=== PATIENT | male | born 2000 ===

== ENCOUNTER 2024-08-29 10:26 | Emergency (ER) | payer BC, SELFPAY ==
--- NOTE | ~2024-08-29 | XR_ITS ---
CLINICAL HISTORY: trauma, swelling 3 view left foot Comparison: None provided Findings: Nondisplaced fracture at the base of the left 5th metatarsal. Mild surrounding edema. No significant arthritic change or erosions. No ankle effusion. No radiopaque foreign body. IMPRESSION: Nondisplaced fracture at the base of the left 5th metatarsal. Mild surrounding edema. This document has been electronically signed by: Vishnu Castro MD on 08/29/2024 11:06:23
--- NOTE | ~2024-08-29 | XR_ITS ---
CLINICAL HISTORY: trauma swelling 3 view left ankle Comparison: None provided Findings: Nondisplaced fracture of the base of the left 5th metatarsal. Mild surrounding soft tissue edema. No significant loss of joint space, osteophytes, or erosions. No ankle effusion. No radiopaque foreign body. IMPRESSION: Nondisplaced fracture of the base of the left 5th metatarsal. Mild surrounding soft tissue edema. This document has been electronically signed by: Vishnu Castro MD on 08/29/2024 11:05:51
[2024-08-29 10:31] VITALS: BP 109/60; PULSE 65; RESP 18; TEMP 37; O2SAT 98; BMI 26.5
--- NOTE | 2024-08-29 11:06 | ED_ITS ---
HPI - General Adult General Chief complaint: Extremity Injury, Lower Stated complaint: L foot injury Time Seen by Provider: 08/29/24 11:03 Source: patient and family (patient's mother) Mode of arrival: wheelchair Limitations: no limitations History of Present Illness ED Provider: Lesly Aldridge PA-C HPI narrative: Patient is a 23 year old assigned male at with no reported medical history presenting to the emergency department today with left foot pain. Patient states that he was cleaning his deck when he fell awkwardly down his stairs and immediately had pain in his left foot with swelling. Patient denies any head strike, loss of consciousness, dizziness, lightheadedness, abdominal pain, nausea, vomiting, fever, chills, blurry vision, double vision, loss of vision, chest pain, difficulty breathing, shortness of breath, back pain, night sweats, pain with urination, increased urinary frequency, increased urinary urgency, blood in his urine or stool, syncope or a near syncopal episode, bowel incontinence, bladder incontinence, or any other complaints at this time. Relieving factors: immobilization Exacerbating factors: movement Associated symptoms: denies other symptoms Treatments prior to arrival: none Related Data Allergies Allergy/AdvReac Type Severity Reaction Status Date / Time No Known Allergies (No Known Allergy Unverified 08/29/24 10:33 Allergies*) Review of Systems Constitutional: Constitutional: Reports no additional constitutional complaints, Denies chills, Denies fever(s) and Denies night sweats Eyes: Eyes: Reports no additional eye complaints, Denies blurry vision, Denies change in vision, Denies diplopia, Denies eye discharge, Denies loss of vision and Denies eye pain ENT: Denies dizziness Cardiovascular: Cardiovascular: Reports no additional cardiovascular complaints, Denies chest pain, Denies lightheadedness, Denies Loss of Consciousness and Denies dyspnea Respiratory: Respiratory: Reports no additional respiratory complaints and Denies dyspnea Gastrointestinal: Gastrointestinal: Reports no additional gastrointestinal complaints, Denies abdominal pain, Denies melena, Denies hematochezia, Denies change in bowel habits and Denies change in stool character Genitourinary: Genitourinary: Reports no additional male genitourinary complaints, Denies hematuria, Denies oliguria, Denies difficulty urinating, Denies dysuria, Denies urinary frequency, Denies urinary hesitancy, Denies urinary incontinence and Denies urinary urgency Musculoskeletal: Musculoskeletal: Reports no additional musculoskeletal complaints, Denies numbness and Denies tingling Comments: left foot pain Neurologic: Denies dizziness, Denies loss of vision, Denies numbness and Denies tingling Psychiatric: Psychiatric: Reports no additional psychiatric complaints Endocrine: Endocrine: Reports no additional endocrine complaints Hematologic/Lymphatic: Hematologic/Lymphatic: Reports no additional doyle tologic/lymphatic complaints Allergic/Immunologic: Allergic/Immunologic: Reports no additional allergic/immunologic complaints PMFSH Past Medical History Attestation statement: The following information was validated with the patient. (all information validated with the patient's mother) Source: old records reviewed, obtained from family (patient's mother provided additional history and confirmed the history provided by the patient.) and nu rsing notes reviewed Social History Social History Advance Directives: No Advance Directives Information Provided: No Physical Exam ED Vital Signs: Vital Signs - 24 hr 08/29/24 10:31 08/29/24 11:55 08/29/24 12:03 Temperature 98.6 F 97.7 F 97.7 F Pulse Rate 65 59 59 Respiratory Rate 18 16 16 Blood Pressure 109/60 125/68 125/68 Pulse Oximetry 98 97 97 Oxygen Delivery Method Room Air Room Air Room Air BMI result Body Mass Index 26.5 Const General: cooperative, no acute distress, alert and awake Nutritional Appearance: well nourished Orientation/consciousness: patient oriented x3 HENMT Head: Yes normal to inspection and Yes atraumatic Ears: hearing grossly normal bilaterally and external ears normal General nose exam: Normal external nose present, no nasal discharge noted and no epistaxis Face and sinus: Yes normal facial exam, No abrasion and No laceration Mouth: Normal oral and palatal mucosa present, no drooling and no muffled voice Eyes General: appearance normal, both eyes and all related structures Periorbital: periorbital findings normal Eyelids: Yes eyelids normal Conjunctivae: conjunctivae normal Pupils: Equal, round and reactive pupils present EOM: EOMs intact bilaterally Neck Neck: Yes normal visual inspection, Yes full ROM and Yes no lymphadenopathy Resp Effort & Inspection: normal respiratory effort and able to speak in complete sentences Neuro General: patient oriented x3, moves all extremities and CN's II-XI intact bilaterally Cranial nerves: Yes Equal, round and reactive pupils present Cognition (Neuro): normal cognition Extrem Other: swelling present to the left anterior foot - over the 5th met pain with inversion of the left foot General: Yes capillary refill normal Psych Appearance: grossly normal Mental Status: mental status grossly normal Affect: normal affect Attitude: cooperative Thought process: Normal thought process present Thought content: Normal thought content present Insight: Good insight present (Psych) Procedures Orthopedic Splinting/Casting Injury #1: Side: left Lower Extremity Injury Location: foot Lower Extremity Immobilizer: posterior splint Other Orthopedic Equipment: crutches Medical Decision Making Medical Decision Making MDM Narrative: Patient is a 23 year old assigned male at with no reported medical history presenting to the emergency department today with left foot pain. Patient's physical exam was as noted in the physical exam portion of this note. Patient's left foot and ankle x-rays showed evidence of a 5th metatarsal fracture at the base with surrounding edema. Upon personal review of the imaging, I am concerned for a Alas type fracture. I spoke with the orthopedic team who recommended placing the patient in a posterior short leg splint, remaining non weight bearing, and having him follow up on an outpatient basis in the office. I explained my physical exam findings as well as all test results to the patient and the patient's mother. I answered all questions asked by the patient and the patient's mother. I placed a posterior short leg splint on the left lower extremity, without incident. Patient's PMS of the left lower extremity was present and intact prior to and after splint placement. Patient was given crutches with crutch instructions and demonstrated appropriate use in the department. I stressed the importance of the patient taking his medication as directed (either prescribed or as the over the counter packaging recommends). I stressed the importance of the patient following up with his primary care provider and the orthopedic team. I stressed the importance of the patient returning to the emergency department immediately if his symptoms were to worsen or if he were to develop any dizziness, shortness of breath, difficulty breathing, chest pain, blurry vision, loss of vision, nausea, vomiting, abdominal pain, fever, chills, back pain, or any other complaints. Patient and the patient's mother verbalized agreement and understanding with this treatment plan and discharge. Differential Diagnosis Differential Diagnoses: The differential diagnosis associated with the presentation includes Left Alas fracture Left 5th metatarsal fracture Admission/Observation Consideration of admission/observation: Escalation of care including admission/observation considered Patient would have been admitted to the hospital had his work up had any findings where hospital admission was appropriate and his clinical presentation warranted hospital admission. Consult Healthcare Provider Management of the patient was discussed with: Telephone Switchboard Operator (I spoke with the orthopedic team as noted in the MDM Rationale portion of this note ) Independent Interpretation I performed an independent interpretation of an: Plain X-Ray Interpretation: My interpretation is in agreement with the radiologist's impression of these imaging studies. CLINICAL HISTORY: trauma swelling 3 view left ankle Comparison: None provided Findings: Nondisplaced fracture of the base of the left 5th metatarsal. Mild surrounding soft tissue edema. No significant loss of joint space, osteophytes, or erosions. No ankle effusion. No radiopaque foreign body. IMPRESSION: Nondisplaced fracture of the base of the left 5th metatarsal. Mild surrounding soft tissue edema. This document has been electronically signed by: Vishnu Castro MD on 08/29/2024 11:05:51 Dictated By: Vishnu Castro MD Signed By: Electronically signed by Vishnu Castro MD 08/29/24 1107 CLINICAL HISTORY: trauma, swelling 3 view left foot Comparison: None provided Findings: Nondisplaced fracture at the base of the left 5th metatarsal. Mild surrounding edema. No significant arthritic change or erosions. No ankle effusion. No radiopaque foreign body. IMPRESSION: Nondisplaced fracture at the base of the left 5th metatarsal. Mild surrounding edema. This document has been electronically signed by: Vishnu Castro MD on 08/29/2024 11:06:23 Dictated By: Vishnu Castro MD Signed By: Electronically signed by Vishnu Castro MD 08/29/24 3212 Radiology Impression Discussion of test interpretation with radiology: I have reviewed the radiologist's reading. Independent Historian Clinical information obtained from an independent historian. History obtained from or confirmed by: Parent (patient's mother provided additional history and confirmed the history provided by the patient. ) Discharge Plan Discharge Clinical Impression: Alas fracture, Foot fracture Patient Disposition: Home, Self-Care Instructions: Crutch Instructions (ED), Foot Fracture in Adults (ED) Additional Instructions: Do NOT get your splint wet. Do NOT remove your splint. Do NOT shove / put anything down / in your splint. If you have any change in sensation, movement, or color of your left toes - you may loosen the outer LYNNETTE wraps. If you find yourself loosening the LYNNETTE wraps to the point of seeing the white splint material underneath - STOP and proceed to your closest Emergency Department, immediately. Follow up with your primary care provider and the orthopedic team. Return to the emergency department immediately if your symptoms worsen or if you develop any numbness, tingling, dizziness, shortness of breath, difficulty breathing, chest pain, blurry vision, loss of vision, nausea, vomiting, abdominal pain, fever, chills, back pain, or any other complaints. Please see the information below about our Patient Portal. If you are not yet enrolled in the [facility] Patient Portal, you will receive an enrollment email invitation following your visit to any [facility] setting. You may also self-enroll in the Patient Portal by visiting our website: [email or web address] The following information is required to access the Patient Portal: - Your [facility] Medical Record Number - Your personal home email address (must match what is in your electronic medical record, Registration staff can assist with this) - Name - Date of Capabilities of the Patient Portal: - Message some providers - View upcoming appointments - Access your health summary, medical history, and visit history - View current conditions and allergies - View procedure and lab results - View your medications, including guidelines, side effects, and precautions - Complete pre-appointment questionnaires requested by your provider - Ready summary reports of your office visits and procedures To access the Patient Portal Mobile [employer], follow these directions: - Search [employer] in the [employer] Store or [employer] Store - Download the [employer] - Search for [facility] - Enter your login/password Referrals: [facility] [Provider Group] Referral Note: Call to establish and follow up with an orthopedic provider. Stand Alone Forms: Work/School Release Interventions: ED Discharge Assessment Last Done: 08/29/24 12:03 Discharge Date/Time: 08/29/24 12:03 Print Language: Pashto
[2024-08-29 11:55] VITALS: BP 125/68; PULSE 59; RESP 16; TEMP 36.5; O2SAT 97
[2024-08-29 12:03] VITALS: BP 125/68; PULSE 59; RESP 16; TEMP 36.5; O2SAT 97
== END 2024-08-29 12:03 | disposition home or self-care (01) ==
PROVIDERS: Emergency Provider Emergency Medicine Emergency Medical Services
DX: S92.355A Nondisplaced fracture of fifth metatarsal bone, left foot, initial encounter for closed fracture (principal); W10.8XXA Fall (on) (from) other stairs and steps, initial encounter; M79.672 Pain in left foot; R60.0 Localized edema; Y93.H9 Activity, other involving exterior property and land maintenance, building and construction; Y92.018 Other place in single-family (private) house as the place of occurrence of the external cause; Y99.8 Other external cause status
CPT/HCPCS: 29515; 73600; 73630; 99282; 99283; 99284

== ENCOUNTER → 2024-08-29 10:40 | Outpatient (BNV) | payer BC, SELFPAY | PROVIDERS: Emergency Provider Emergency Medicine Emergency Medical Services; Visit Provider Radiology Vascular & Interventional Radiology | DX: S92.355A Nondisplaced fracture of fifth metatarsal bone, left foot, initial encounter for closed fracture (principal) | CPT/HCPCS: 73600; 73630 ==

== ENCOUNTER 2024-11-11 11:26 | Outpatient (AMB) | payer BC, SELFPAY ==
--- NOTE | 2024-11-11 11:35 | MHC.PC.OV ---
Vital Signs 11/11/24 11:41 Height 5 ft 11 in Weight 198 lb 8 oz BMI 27.7 BP 110/72 Blood Pressure Location Rt brachial Position Sitting Respiration 18 Pulse 62 Pulse Source Pulse Oximeter Temp 98.2 F Temp Source Temporal Artery Scan Pulse Oximetry (%) 96 Oxygen Delivery Method Room Air Intake Visit Reasons: CPE? Intake Note: Geovany presents in the office today for his annual physical. Allergies No Known Allergies (No Known Allergies*) Allergy (Verified 11/11/24 12:08) Medication List - Last Reconciled 11/11/24 by SHANIQUE AkbarP- albuterol sulfate 90 mcg/actuation inhalation cetirizine 10 mg PO DAILY clobetasol 0.05% topical BID Tobacco use date assessed: 11/11/24 Dental Screening Dental Screen Date: 11/11/24 Did you have a dental visit in the last 12 months?: No Did you have a dental problem in the last 6 months where you did not have access to dental care?: No Was dental information given to patient?: Yes HPI HPI Comments History of Present Illness Details 23 y/o M with asthma, seasonal allergies, hx of Nondisplaced fracture of the base of the left 5th metatarsal, hx of R clavicle s/p R clavicle repair Fhx: Mom w/ HTN, Dad unknown. 1 sister w/ eczema. No children. 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 Health Maintenance Tdap 2011, declined. Offered and declined screening labs History of Present Illness - The patient is a 23-year-old male presenting to [facility] care for a CPE. Limited MR from ED visit avail for review. - concerns regarding asthma, eczema, and allergies. - Asthma: History includes nighttime exacerbations, use of albuterol, and exercise-induced symptoms. - Allergic Rhinitis: Managed with cetirizine, with a recent running out of the medication. - Atopic Dermatitis: Reports flares on hands and knees, usage of clobetasol ointment. was active w/ lenzy in the past. needs new referral. - Nasal Congestion: Reports significant postnasal drip, chronic Social History - Reports engagement in running and plans to pursue a career in nursing - Resides in [facility] Review of Systems - Respiratory: Reports nighttime and exertion-related asthma symptoms. - Dermatologic: Reports eczema flares on hands and knees. - Allergic/Immunologic: Reports seasonal allergies controlled previously by cetirizine. - Ear, Nose, and Throat: Reports nasal congestion and postnasal drip. Physical Exam General: Well developed, well nourished, in no acute distress. Appears stated age. Head: Normocephalic, atraumatic. Eyes: Pupils are equal, round and reactive to light and accommodation. Conjunctivae are clear. Vision grossly normal. Ears: TMs clear AU, EACS WNL Nose: Nasal congestion, + clear discharge. Noted a large polyp on the left side. Neck: Supple, no adenopathy or thyromegaly. Breast: Edu on SBE Lungs: Clear to auscultation bilaterally. No rales, rhonchi or wheeze noted. Good air flow in all smith. Heart: Regular rate and rhythm. No murmurs, click, rubs or gallops are noted. Abdomen: Bowel sounds present in all quadrants. The abdomen is soft, nontender, with no masses or organomegaly noted. No hernias are noted. : Deferred. Reviewed SARAH & recommendations Pulses: Peripheral pulses are equal and palpable bilaterally. Extremities: No clubbing, cyanosis nor edema is noted. Neurologic: Gait and station normal. Cranial Nerves 2-12 intact. Motor strength grossly symmetrical and intact. No sensory loss. Balance normal. Skin: Eczema noted on hands, elbows and behind the knees. No other rashes, ulcers, or lesions noted. Turgor is good. Skin color is good. Hair and nails are without abnormalities. Psych: Normal eye contact, affect and mood appropriate, and normal interactions. Patient is alert and appropriate to context. Discussion Notes I discussed the patient's asthma management, emphasizing proper timing and utilization of albuterol before exercise and ensuring it is used as a rescue inhaler in case of emergent symptoms. Adequate management of seasonal allergies was addressed, planning to reissue cetirizine prescriptions. The use of clobetasol for eczema was advised with caution, and further consultation with dermatology for better management options was recommended. I proposed Singulair as an adjunct therapy to address the patient's atopic triad of asthma, eczema, and allergic rhinitis, discussing its effectiveness on mast cells and easing allergic responses. A follow-up of six months was scheduled for asthma monitoring, and patient education on using the patient portal for communication was delivered. Patient was given time to ask questions. All questions were answered to their satisfaction. Assessment and Plan 1. Asthma - Albuterol pre-exercise and as-needed. - Initiated Singulair. - Six-month follow-up. 2. Allergic Rhinitis/polyp - Renewed cetirizine. - Began Flonase. 3. Atopic Dermatitis - Limited clobetasol use. - Dermatology referral initiated. 4. Nasal Polyp - Recommended Flonase for congestion. 5. declined tdap and labs. Patient Instructions - Use albuterol as directed before exercise and if symptoms arise at night. - Take prescribed cetirizine daily for allergy control. - Use Flonase as instructed for nasal congestion. - Consult with dermatology for eczema management. - Return in six months for asthma follow-up. Consent The patient was informed of the benefits and potential side effects related to Singulair, Flonase, and the limited use of clobetasol. He comprehended the treatment implications, including Singulair?s role in mitigating allergic responses through mast cell modulation. The risks of nighttime inhaler overuse were addressed, and he agreed to the outlined treatment plan, consenting verbally to the proposed interventions and follow-up arrangement. Patient was informed and verbally consented to the use of an ambient scribe for clinic note documentation during this visit. An additional 30 minutes was spent addressing the problem(s) noted at todays visit. This includes time spent before the visit reviewing the chart, time spent during the visit, and time spent after the visit on documentation reviewing laboratory results, diagnostic imaging, medications, performing a medically necessary evaluation, counseling on diagnoses, care coordination, ordering appropriate tests, ordering appropriate medications, review of tests performed by other providers, reporting test results with the patient, communication with other healthcare providers. FORMERLY [facility], [facility] Medical History (Updated 11/11/24 @ 12:47 by CRISTAL Akbar-MARISOL) Asthma Clavicle fracture Eczema Alas fracture Surgical History (Updated 11/11/24 @ 12:44 by CRISTAL Akbar-MARISOL) History of orthopedic surgery Family History (Updated 11/11/24 @ 11:39 by Becky Garcia) Father Alcoholism Substance abuse Social History (Updated 11/11/24 @ 11:40 by Becky Garcia) Housing: House Alcohol intake: current Patient Tobacco Use Status: Never used Tobacco e-Cigarette/Vaping Use: Never Used Second Hand Smoke Exposure: Yes service: No Current occupational status: employed 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 1. Little interest or pleasure in doing things: not at all 2. Feeling down, depressed, or hopeless: not at all 3. Trouble falling or staying asleep, or sleeping too much: more than half the days 4. Feeling tired or having little energy: several days 5. Poor appetite or overeating: not at all 6. Feeling bad about yourself - or that you are a failure or have let yourself or your family down: not at all 7. Trouble concentrating on things, such as reading the newspaper or watching television: not at all 8. Moving or speaking so slowly that other people could have noticed. Or the opposite - being so fidgety or restless that you have been moving around a lot more than usual: not at all 9. Thoughts that you would be better off or of hurting yourself in some way: not at all Total score: 3 Depression Screening Interpretation: Negative Depression Screening Done: Yes 96666 - PHQ-9 Billing: Yes Source: Developed by Drs. Erick Cheung, Makayla Delacruz, Viraj Diaz and colleagues, with an educational marge from [employer]. Thrive Questionnaire Date Thrive assessed: 11/11/24 I am a: Patient What is your living situation today?: I have a steady place to live Within the past 12 months, did the food you bought not last and you didn't have the money to get more?: I choose not to answer this question Within the past 12 months, did you worry whether your food would run out before you got money to buy more?: I choose not to answer this question Do you have trouble paying for medicines?: I choose not to answer this question Do you have trouble getting transportation to medical appointments?: I choose not to answer this question Do you have trouble paying your heating and electricity bill?: I choose not to answer this question Do you have trouble taking care of your child, family member or friend?: I choose not to answer this question Do you have trouble with day-to-day activities such as bathing, preparing meals, shopping, managing finances, etc.?: No Are you currently unemployed and looking for a job?: No Are you interested in more education?: Yes Please select the resources that you would like help with: None Currently or been in a relationship where the following occur: I choose not to answer THRIVE Score: 0 AUDIT C Alcohol Use Questionnaire (AUDIT-C) 1. How often do you have a drink containing alcohol?: Monthly or less 2. How many drinks containing alcohol do you have on a typical day when you are drinking?: 1 or 2 3. How often do you have six or more drinks on one occasion?: Never Total Score: 1 Score Reviewed/Action Taken: Yes VALERIE-7 AMB Questionnaire VALERIE-7 Date VALERIE - 7 assessed: 11/11/24 Feeling nervous, anxious, or on edge: 0 = Not at all Not being able to stop or control worryin = Not at all Worrying too much about different things: 0 = Not at all Trouble relaxin = Not at all Being so restless that it is hard to sit still: 0 = Not at all Becoming easily annoyed or irritable: 0 = Not at all Feeling afraid as if something awful might happen: 0 = Not at all Total VALERIE-7 score (0-4 normal; 5-9 mild; 10-14 moderate; 15-21 severe): 0 Source: Developed by Drs. Erick Cheung, Makayla Delacruz, Viraj Diaz and colleagues, with an educational marge from [employer]. VALERIE-7 Assessment Billing VALERIE-7 Assessment Tool: VALERIE-7 Assessment 47712 ACT Questionnaire In the past 4 weeks, how much of the time did your asthma keep you from getting as much done at work, school or at home?: None of the time During the past 4 weeks, how often have you had shortness of breath?: 3-6 times a week During the past 4 weeks, how often did your asthma symptoms wake you up at night or earlier than usual in the morning?: 4 or more nights a week During the past 4 weeks, how often have you had to use your rescue inhaler or nebulizer medication?: 2-3 times a week How would you rate your asthma control during the past 4 weeks?: Somewhat controlled ACT Interpretation: Positive ACT Branch: New medication Score: 15 Physical exam (Primary Care) Vital Signs: Last Vital Signs Temp 98.2 F 11/11/24 11:41 Pulse 62 11/11/24 11:41 Resp 18 11/11/24 11:41 BP 110/72 11/11/24 11:41 Pulse Ox 96 11/11/24 11:41 Oxygen Delivery Method Room Air 11/11/24 11:41 BMI result Body Mass Index 27.7 Tobacco/Smoking Status: Tobacco use Status Tobacco use date assessed 11/11/24 11/11/24 11:44 Patient Tobacco Use Status Never used Tobacco 11/11/24 11:44 e-Cigarette/Vaping Use Never Used 11/11/24 11:44 PHQ-9: PHQ-9 Score PHQ-9: Total score 3 11/11/24 12:08 Depression Screening Interpretation: Negative Thrive Assessment: Date of Thrive Assessment Date Thrive assessed 11/11/24 11/11/24 11:44 Currently or been in a relationship where the following occur: I choose not to answer Coding Level of Care Code New Pt Level 3 (99400) New Pt Prev Care 18-39yr(03560 Diagnoses Encounter to establish care with new provider Z76.89 Mild intermittent asthma without complication J45.20 Seasonal allergies J30.2 Flexural eczema L20.82 Eczema type: flexural Tetanus, diphtheria, and acellular pertussis (Tdap) vaccination declined Z28.21 Left nasal polyps J33.9 Encounter for general adult medical examination without abnormal findings Z00.00 Additional Codes Asthma Control Questionnaire - ACT Interpretation: Positive ([id number]) VALERIE-7 Assessment Billing - VALERIE-7 Assessment Tool: VALERIE-7 Assessment 45354 ([id number]) PHQ-9 - 18898 - PHQ-9 Billing: Yes ([id number]) Assessment & Plan Assessment & Plan (1) Encounter to establish care with new provider: Code(s): Z76.89 - Persons encountering health services in other specified circumstances (2) Mild intermittent asthma without complication: Code(s): J45.20 - Mild intermittent asthma, uncomplicated Category: Medical (3) Seasonal allergies: Code(s): J30.2 - Other seasonal allergic rhinitis Category: Medical (4) Eczema: Code(s): L30.9 - Dermatitis, unspecified Category: Medical Qualifiers: Eczema type: flexural Qualified Code(s): L20.82 - Flexural eczema (5) Tetanus, diphtheria, and acellular pertussis (Tdap) vaccination declined: Code(s): Z28.21 - Immunization not carried out because of patient refusal Category: Medical (6) Left nasal polyps: Code(s): J33.9 - Nasal polyp, unspecified Category: Medical (7) Encounter for general adult medical examination without abnormal findings: Onset Date: ~11/11/24 Code(s): Z00.00 - Encounter for general adult medical examination without abnormal findings Category: Medical Plan . Orders: Referrals Dermatology Referral L30.9 - Dermatitis, unspecified Medications: New albuterol sulfate 90 mcg/actuation 2 puffs inhalation Q6H 6.7 grams 1RF montelukast (Singulair) 10 mg PO BEDTIME 90 tabs 2RF fluticasone propionate 50 mcg/actuation administer into each nostril 1 spray intranasal BID 16 grams 12RF cetirizine 10 mg PO DAILY 90 tabs 2RF clobetasol 0.05% 1 appl topical BID 30 grams 2RF Patient Instructions: Walk-In Care (Urgent Care): We Make it Easy Walk-in for urgent medical issues such as: ? Seasonal Allergies ? Insect Bites ? Cough ? Diarrhea ? Acute Asthma Attacks ? Back, Knee or Joint Pain ? Ear Infection ? Fever without a Rash ? Headaches ? Nausea ? [place], Rash or Skin Irritation ? Sore Throat ? Sports Physicals ? Vomiting Most insurances are accepted. Patients do not need to be part of the [facility] to seek care at the walk-in clinic. Locations [address] [place] [address] , [place] [address] ? [phone] [facility] Walk-In Care in [place] provides services to ages 18 and over. Open Sunday-Sunday: 7 a.m. to 5 p.m. and Sunday: 9 a.m. to 3 p.m.* *Hours may vary due to staffing availability. To confirm Walk-In Care hours in [place], please call [phone]. [address] [facility], [place] [address] ? [phone] [facility] Walk-In Care in [place] provides services to ages 12 and over. Open Sunday-Sunday: 8 a.m. to 5 p.m. Hours may vary due to staffing availability. To confirm Walk-In Care hours in [place], please call [phone]. LABORATORY SERVICES: [facility] ? Primary Location [address] [place] [address] Sunday through Sunday 6:00 AM ? 5:00 PM Sunday 7:00 AM ? 11:00 AM* [phone] The [facility] is centrally located near the front entrance of the [facility] for easy outpatient access. Convenient parking is provided for outpatients. *Hours may vary due to staffing availability. To confirm Laboratory hours for any location, please call [phone]. Offsite Location For your convenience, we offer offsite laboratory draw stations at the following locations: [address] [place] [address] ? [address], [address] Sunday through Sunday 7:30 AM ? 1:00 PM* [phone] *Hours may vary due to staffing availability. To confirm Laboratory hours for any location, please call [phone]. [place] ? [address] Sunday through Sunday 6:00 AM ? 3:30 PM* Sunday 6:30 AM ? 3 PM* [phone] *Hours may vary due to staffing availability. To confirm Laboratory hours for any location, please call [phone] [place] [address] Sunday through Sunday 7:30 AM ? 4:00 PM* [phone] *Hours may vary due to staffing availability. To confirm Laboratory hours for any location, please call [phone] [place] [address] Sunday through 9:00 AM ? 4:00 PM* *Hours may vary due to staffing availability. To confirm Laboratory hours for any location, please call [phone]. Appointments are not necessary. Walk-ins are welcome. Like all the departments throughout the [facility], our Lab undergoes frequent reviews to ensure the quality and accuracy of test results, and our staff takes special pride in its status as a nationally accredited facility. Patient Portal: [facility] ONE PATIENT. ONE RECORD. BETTER CARE. [facility] has a fully integrated, cutting-edge mobile electronic health information system that has revolutionized the way we care for our patients and manage our organization. This system improves communication and coordination enabling us to provide safe, higher-quality care, and an overall positive experience for staff and patients. Our first priority, as always, is to deliver the highest quality care possible. The system is running in the background supporting that priority. This portal is for all [facility] services and practices. If you are experiencing any technical difficulties with enrolling or logging into the Patient Portal please complete the [facility] Patient Portal Technical Support Form. [facility] now offers a new secure on-line interactive tool for patients to review their health information ? ?Patient Portal. This interactive web portal will enable patients and their families to take an active role in their care by providing easy, secure access to their health information via the internet. The Patient Portal provides patients with instant access to their health information, including laboratory results, medications, allergies, demographic information, visit history, and more. In addition to managing their own care, parents and health care proxies with authorized consent will appreciate the ability to access the records of those individuals for whom they provide care. Please note: if you wish to gain access (Proxy) to another patient?s portal, you will be required to come to the Medical Records Department in person at [facility]. Both the patient giving proxy access and the proxy will need to provide photo identification and complete the appropriate authorization. The Patient Portal also allows track their appointments online. The [facility] Patient Portal also saves patients time by allowing them to submit updates to their demographic and contact information prior to their visits. Portal email notifications will also alert patients to any new activity on their portal, such as test results and new appointments. In order to initially enroll in the [facility] Patient Portal, you will need to enter some required information including the following: your [facility] Medical Record number your personal home email address name date of Please note: In order to enroll in the [facility] Patient Portal, we need to have your email address on file in your electronic medical record. ?The email address needs to be specific for one person (yourself) in order for your Portal enrollment to be successful. ?You can update your email address in person with our Registration staff when you are registering for a hospital visit. ?Otherwise, you will need to come to the Health Information Management (Medical Records) Department at [facility]. ?We are open from Sunday ? Sunday from 7:30 a.m. ? 4:30 p.m. ?You will be required to present a photo id. Once you have successfully enrolled in the Patient Portal, you will receive a one-time user id and password for the Portal, sent to your email address. ?This will allow you to log into the Patient Portal within 99 hrs and reset your own logon id and password, and define personal security questions. ?Once your permanent login and password have been set, you can log into the [facility] Patient Portal at any time via the blue button above or from the Portal Logon button on any page of the [facility] website. [facility] and [facility] encourage all of our patients to enroll in Patient Portal as it presents a valuable opportunity for patients and their families to actively participate in their care and stay healthy Welcome to [facility]. ?We look forward to working with you. Health screenings for men You should visit your health care provider regularly, even if you feel healthy. The purpose of these visits is to: Screen for medical issues Assess your risk for future medical problems Encourage a healthy lifestyle Update vaccinations and other preventive care services Help you get to know your provider in case of an illness Information Even if you feel fine, you should still see your provider for regular checkups. These visits can help you avoid problems in the future. For example, the only way to find out if you have high blood pressure is to have it checked regularly. High blood sugar and high cholesterol level also may not have any symptoms in the early stages. Simple blood tests can check for these conditions. There are specific times when you should see your provider or receive specific health screenings. The [place] Preventive Services Task Force publishes a list of recommended screenings. Below are screening guidelines for men ages 40 to 64. BLOOD PRESSURE SCREENING Have your blood pressure checked at least once every year. Watch for blood pressure screenings in your area. Ask your provider if you can stop in to have your blood pressure checked. Ask your provider if you need your blood pressure checked more often if: You have diabetes, heart disease, kidney problems, or are overweight or have certain other health conditions You have a first-degree relative with high blood pressure You are Black Your blood pressure top number is from 120 to 129 mm Hg, or the bottom number is from 70 to 79 mm Hg If the top number is 130 mm Hg or greater or the bottom number is 80 mm Hg or greater, this is considered stage 1 hypertension. Schedule an appointment with your provider to learn how you can lower your blood pressure. Effects of age on blood pressure CHOLESTEROL SCREENING Cholesterol screening should begin at age 35 for men with no known risk factors for coronary heart disease. Repeat cholesterol screening should take place: Every 5 years for men with normal cholesterol levels More often if changes occur in lifestyle (including weight gain and diet) More often if you have diabetes, heart disease, kidney problems, or certain other conditions COLORECTAL CANCER SCREENING If you are under age 45, talk to your provider about getting screened. You may need to be screened if you have a strong family history of colon cancer or polyps. Screening may also be considered if you have risk factors such as a history of inflammatory bowel disease or polyps. If you are age 45 to 75, you should be screened for colorectal cancer. There are several screening tests available: A stool-based fecal occult blood (gFOBT) or fecal immunochemical test (FIT) every year A stool sDNA test every 1 to 3 years Flexible sigmoidoscopy every 5 years or every 10 years with stool testing FIT done every year CT colonography (virtual colonoscopy) every 5 years Colonoscopy every 10 years You may need a colonoscopy more often if you have risk factors for colorectal cancer, such as: Ulcerative colitis A personal or family history of colorectal cancer A history of growths in your colon called adenomatous polyps DENTAL EXAM Go to the dentist once or twice every year for an exam and cleaning. Your dentist will evaluate if you have a need for more frequent visits. DIABETES SCREENING All adults who do not have risk factors for diabetes should be screened starting at age 35 and repeated every 3 years. If you have other risk factors for diabetes, such as a first degree relative with diabetes, overweight or obesity, high blood pressure, prediabetes, or a history of heart disease, you may be tested more often. If you are overweight and have other risk factors, such as high blood pressure and are planning to become , screening is recommended. EYE EXAM Have an eye exam every 2 to 4 years ages 40 to 54 and every 1 to 3 years ages 55 to 64. Your provider may recommend more frequent eye exams if you have vision problems or glaucoma risk. Have an eye exam that includes an examination of your retina (back of your eye) at least every year if you have diabetes. IMMUNIZATIONS Commonly needed vaccines include: Flu shot: get one every year COVID-19 vaccine: ask your provider what is best for you Tetanus-diphtheria and acellular pertussis (Tdap) vaccine: have as one of your tetanus-diphtheria vaccines if you did not receive it as an adolescent Tetanus-diphtheria: have a booster (or Tdap) every 10 years Varicella vaccine: receive 2 doses if you never had chickenpox or the varicella vaccine and were born in 1979 or after Hepatitis B vaccine: receive 2, 3, or 4 doses, depending on your exact circumstances, if you did not receive these as a child or adolescent, until age 59 Shingles (herpes zoster) vaccine: at or after age 50 Ask your provider if you should receive other immunizations, especially if you have certain medical conditions, such as diabetes or are at increased risk for some diseases such as pneumonia. INFECTIOUS DISEASE SCREENING Screening for hepatitis C: all adults ages 18 to 79 should get a one-time test for hepatitis C. Screening for human immunodeficiency virus (HIV): all people ages 15 to 65 should get a one-time test for HIV. Depending on your lifestyle and medical history, you may need to be screened for infections such as syphilis, chlamydia, and other infections. LUNG CANCER SCREENING You should have an annual screening for lung cancer with low-dose computed tomography (LDCT) if: You are age 50 to 80 years AND You have a 20 pack-year smoking history AND You currently smoke or have quit within the past 15 years OSTEOPOROSIS SCREENING If you are age 50 to 64 and have risk factors for osteoporosis, you should discuss screening with your provider. Risk factors can include long-term steroid use, low body weight, smoking, heavy alcohol use, having a fracture after age 50, or a family history of hip fracture or osteoporosis. Osteoporosis PHYSICAL EXAM All adults should visit their provider from time to time, even if they are healthy. The purpose of these visits is to: Screen for diseases Assess risk of future medical problems Encourage a healthy lifestyle Update vaccinations and other preventive care services Maintain a relationship with a provider in case of an illness Your height, weight, and body mass index (BMI) should be checked at every exam. During your exam, your provider may ask you about: Depression and anxiety Diet and exercise Alcohol and tobacco use Safety, such as use of seat belts and smoke detectors Your medicines and risk for interactions PROSTATE CANCER SCREENING If you're 55 through 69 years old, before having the test, talk to your provider about the pros and cons of having a PSA test. Ask about: Whether screening decreases your chance of dying from prostate cancer. Whether there is any harm from prostate cancer screening, such as side effects from testing or overtreatment of cancer when discovered. Whether you have a higher risk of prostate cancer than others. If you are age 55 or younger, screening is not generally recommended. You should talk with your provider about if you have a higher risk for prostate cancer. Risk factors include: Having a family history of prostate cancer (especially a brother or father) Being If you choose to be tested, the PSA blood test is repeated over time (yearly or less often), though the best frequency is not known. Prostate examinations are no longer routinely done on men with no symptoms. Prostate cancer SKIN EXAM Your provider may check your skin for signs of skin cancer, especially if you're at high risk. People at high risk include those who have had skin cancer before, have close relatives with skin cancer, or have a weakened immune system. TESTICULAR EXAM The [place] Preventive Services Task Force (USPSTF) now recommends against performing testicular self-exams. Doing testicular self-exams has been shown to have little to no benefit.
[2024-11-11 11:41] VITALS: BP 110/72; PULSE 62; RESP 18; TEMP 36.8; O2SAT 96; BMI 27.7
--- OUTSIDE RECORDS SUMMARY | 2024-11-11 15:36 | XMS_ITS | Encounter Summary ---
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 Role Phone Kulwant Jernigan MD Primary Care Provider [phone] Encounter Details Date Type Department Care Team (Late st Contact Info) Description 10/12/2016 Conversion Encounter [facility] [place] [address] [place] [address] Social History Tobacco Use Types Packs/Day Years Used Date Smoking Tobacco: Never Assessed Sex and Gender Information Value Date Recorded Sex Assigned at Not on file Legal Sex Male 4:17 PM EDT Gender Identity Not on file Sexual Orientation Not on file documented as of this encounter Plan of Treatment Not on file documented as of this encounter Visit Diagnoses Not on filedocumented in this encounter Care Teams American History Teacher Relationship Specialty Start Date End Date Kulwant Jernigan MD [address] [place] [address] PCP - General 10/06/16 08/03/22 documented as of this encounter
--- OUTSIDE RECORDS SUMMARY | 2024-11-11 15:36 | XMS_ITS | Clinical Summary ---
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 Role Phone Unavailable Primary Care Provider Unavailabl e Immunizations Immunization Administration Dates Next Due DTaP 5 01/17/2005, 2,07/13/2000,05/14/2000 ,03/02/2000 Hep B, ped/adol 10/10/2000,01/27/2000,01/01/2000 Hib (PRP-T) 04/04/2001,07/13/2000,05/14/2000 ,03/02/2000 IPV 01/17/2005,07/13/2000,05/14/2000 ,03/02/2000 Influenza, injectable, trivalent 01/17/2005 MMR 01/17/2005,01/01/2001 Pneumococcal Conjugate 01/01/2001,07/13/2000,,03/02/2000 Varicella 07/04/2001 Family History Relation Name Status Comments Father Alive Father: Alive a nd well Maternal Grandmother Alive Materna l grandmother: Asthma Mother Alive Mother: Alive a nd well, Obesity Other Family history of Obesity Sister Alive Sister: Alive a nd well Social History Tobacco Use Types Packs/Day Years Used Date Smoking Tobacco: Never Assessed Sex and Gender Information Value Date Recorded Sex Assigned at Not on file Legal Sex Male 4:17 PM EDT Gender Identity Not on file Sexual Orientation Not on file Plan of Treatment Health Maintenance Due Date Last Done Comments Hepatitis B Vaccines (3 of 3 - 3-dose series) 12/05/2000 10/10/2000, 01/27/2000, 01/01/2000 Varicella Vaccines (2 of 2 - 2-dose childhood series) 02/14/2005 07/04/2001 DTaP,Tdap,and Td Vaccines (6 - Tdap) 12/28/2010 01/17/2005, 07/04/2001, 07/13/2000, Additional history exists HPV Vaccines (1 - Male 3-dose series) 12/28/2014 Influenza Vaccines (#1) 2024 01/17/2005 COVID-19 Vaccine (1 - season) 2024 Pneumococcal Vaccine Completed 01/01/2001, 07/13/2000, 05/14/2000, Additional history exists HIB Vaccines Completed 04/04/2001, 06/26, 05/14/2000, Additional history exists IPV Vaccines Completed 01/17/2005, 06/26, 05/14/2000, Additional history exists MMR Vaccines Completed 01/17/2005, 01/01/2001 Hepatitis A Vaccines Aged Out No long er eligible based on patient's age to complete this topic Men B Vaccine Aged Out No longer elig ible based on patient's age to complete this topic Meningococcal Vaccine Aged Out No bryan mayra eligible based on patient's age to complete this topic
== END 2024-11-11 12:28 | disposition home or self-care (01) ==
LOC: HO.HMCFM 11:27
PROVIDERS: PCP Nurse Practitioner Family; Visit Provider Nurse Practitioner Family
DX: Z00.00 Encounter for general adult medical examination without abnormal findings (principal); J45.20 Mild intermittent asthma, uncomplicated; J30.2 Other seasonal allergic rhinitis; L20.82 Flexural eczema; J33.9 Nasal polyp, unspecified; Z76.89 Persons encountering health services in other specified circumstances; Z28.21 Immunization not carried out because of patient refusal

== ENCOUNTER → 2024-11-11 11:26 | Outpatient (BNVA) | payer BC, SELFPAY | PROVIDERS: PCP Nurse Practitioner Family; Visit Provider Nurse Practitioner Family | DX: Z00.00 Encounter for general adult medical examination without abnormal findings (principal); L20.9 Atopic dermatitis, unspecified; J33.9 Nasal polyp, unspecified; J45.20 Mild intermittent asthma, uncomplicated; L20.82 Flexural eczema; Z76.89 Persons encountering health services in other specified circumstances | CPT/HCPCS: 96127; 96160 ==